=== PATIENT | male | born 1940 | race Hispanic/Latino ===

== ENCOUNTER 2017-10-27 18:01 | Observation (INO) | payer MEDICARE ==
[2017-10-27 18:51] LABS: Basophils # (Auto) 0.1 K/mm3 (0.0-0.1); Eosinophils # (Auto) 0.1 K/mm3 (0.0-0.4); Eosinophils % (Auto) 0.9 % (0.0-4.3); Hematocrit 43.4 % (35.5-45.6); Hemoglobin 14.5 gm/dl (11.8-15.2); Lymphocytes # (Auto) 1.5 K/mm3 (1.2-5.4); Lymphocytes % (Auto) 23.7 % (13.4-35.0); Mean Corpuscular HGB Conc 34 % (32-34); Mean Corpuscular Hemoglobin 31 pg (28-32); Mean Corpuscular Volume 92 fl (84-94); Monocytes # (Auto) 0.5 K/mm3 (0.0-0.8); Monocytes % (Auto) 8.2 % (0.0-7.3); Platelet Count 167 K/mm3 (140-440); Red Blood Count 4.72 M/mm3 (3.65-5.03); Red Cell Distribution Width 13.8 % (13.2-15.2)
[2017-10-27 19:10] LABS: Creatine Kinase MB 5.6 ng/mL (0.0-4.0)
[2017-10-27 19:12] LABS: BUN/Creatinine Ratio 17; Blood Urea Nitrogen 15 mg/dL (9-20); Calcium 9.5 mg/dL (8.4-10.2); Hemolysis Index 12
--- NOTE | 2017-10-27 20:41 | Emergency Department Report ---
ED Dizziness HPI - General Chief Complaint: Dizziness Stated Complaint: DIZZINESS Time Seen by Provider: 10/27/17 20:40 Source: patient, EMS Mode of arrival: Stretcher Limitations: No Limitations - History of Present Illness MD Complaint: dizziness, lightheadedness, difficulty walking -: Gradual, days(s) (Nine) Timing: gradual onset Description: lightheadedness, off-balance, difficulty walking History of Same: No History of Trauma: No Severity: Unable to Determine Improves With: nothing Worsens With: nothing Associated Symptoms: denies: denies other symptoms - Related Data Allergies Allergy/AdvReac Type Severity Reaction Status Date / Time amoxicillin Allergy Unknown Verified 10/27/17 18:13 codeine Allergy Unknown Verified 10/27/17 18:13 ED Review of Systems ROS: Stated complaint: DIZZINESS Other details as noted in HPI Comment: All other systems reviewed and negative Constitutional: denies: chills, fever Eyes: denies: eye pain ENT: denies: ear pain, throat pain Respiratory: denies: cough, orthopnea, shortness of breath Cardiovascular: denies: chest pain, palpitations, dyspnea on exertion, syncope Endocrine: no symptoms reported Gastrointestinal: denies: abdominal pain, nausea, vomiting, diarrhea Genitourinary: denies: urgency, dysuria, frequency Musculoskeletal: denies: back pain, joint swelling Skin: denies: rash, lesions, change in color Neurological: abnormal gait. denies: headache, weakness, numbness, paresthesias , confusion Psychiatric: denies: anxiety, depression Hematological/Lymphatic: denies: easy bleeding, easy bruising ED Past Medical Hx - Past Medical History Previous Medical History?: Yes Hx Hypertension: Yes Hx Asthma: Yes Additional medical history: right inguinal hernia. umbilical hernia - Surgical History Past Surgical History?: Yes Additional Surgical History: "eye sx" - Social History Smoking Status: Former Smoker Substance Use Type: None ED Physical Exam - General Limitations: No Limitations General appearance: alert, in no apparent distress - Head Head exam: Present: atraumatic, normocephalic, normal inspection - Eye Eye exam: Present: normal appearance, PERRL, EOMI Pupils: Present: normal accommodation - ENT ENT exam: Present: normal exam, normal orophraynx, mucous membranes moist - Neck Neck exam: Present: normal inspection, full ROM. Absent: tenderness - Respiratory Respiratory exam: Present: normal lung sounds bilaterally. Absent: respiratory distress, wheezes, rales, rhonchi, stridor - Cardiovascular Cardiovascular Exam: Present: regular rate, normal rhythm, normal heart sounds - GI/Abdominal GI/Abdominal exam: Present: soft, normal bowel sounds. Absent: distended, tenderness, guarding, rebound, rigid - Extremities Exam Extremities exam: Present: normal inspection, full ROM, normal capillary refill - Back Exam Back exam: Present: normal inspection, full ROM. Absent: tenderness - Neurological Exam Neurological exam: Present: alert, oriented X3, CN II-XII intact - Psychiatric Psychiatric exam: Present: normal affect, normal mood - Skin Skin exam: Present: warm, dry, intact, normal color. Absent: rash ED Course Vital Signs 10/27/17 10/27/17 18:13 18:52 Temperature 98.8 F Pulse Rate 94 H Respiratory 28 H 28 H Rate Blood Pressure 132/78 O2 Sat by Pulse 96 96 Oximetry - Reevaluation(s) Reevaluation #1: 10/27/17 23:05 Patient will be admitted bt the hospitalist outreach and education social worker Dr Weaver for further evaluation and management. ED Medical Decision Making - Lab Data Result diagrams: 10/27/17 18:40 10/27/17 18:40 - EKG Data -: EKG Interpreted by Me EKG shows normal: sinus rhythm Rate: normal (91) - EKG Data When compared to previous EKG there are: previous EKG unavailable Interpretation: nonspecific ST-T wave jet, other (First degree AV block, Incomplete RBBB, Prolonged QT, No STEMI.) - Radiology Data Radiology results: report reviewed, image reviewed - Medical Decision Making Dizziness. Unsteady Gait. Critical care attestation.: If time is entered above; I have spent that time in minutes in the direct care of this critically ill patient, excluding procedure time. ED Disposition Clinical Impression: Unsteady gait, Dizziness Disposition: OP ADMIT IP TO THIS HOSP Is pt being admited?: Yes Does the pt Need Aspirin: No Condition: Stable Time of Disposition: 23:05
[2017-10-27 21:06] LABS: INR 0.94 (0.87-1.13)
[2017-10-27 21:14] LABS: Bilirubin,Urine NEG (Negative); Blood,Urine NEG (Negative); Color,Urine Colorless (Yellow); Protein,Urine <15 mg/dL mg/dL (Negative); Urobilinogen,Urine < 2.0 mg/dL (<2.0); WBC,Urine < 1.0 /HPF (0.0-6.0)
[2017-10-27] MEDS ORDERED: K-DUR PO ONE ×2 (21:18→23:34)
[2017-10-27] MEDS ORDERED: NACL 0.9% 1000 ML 1,000 ML IV ONE ×2 (22:10→22:26)
[2017-10-27] MEDS ORDERED: NACL 0.9% 1000 ML 1,000 ML ONE (22:15)
--- NOTE | 2017-10-27 22:49 | Cat Scan Report ---
FINAL REPORT PROCEDURE: CT HEAD/BRAIN WO CON TECHNIQUE: Computerized tomography of the head was performed without contrast material. HISTORY: Dizziness COMPARISON: No prior studies are available for comparison. FINDINGS: Skull and scalp: Normal. Paranasal sinuses: Normal. Ventricles and subarachnoid spaces: Are prominent consistent with cerebral atrophy appropriate for patient's age.. Cerebrum: Old lacunar infarcts are noted involving bilateral basal ganglia. There is moderate degree bilateral periventricular nonspecific white matter hypodensity most likely representing chronic microangiopathy. An acute intra-axial or extra-axial hemorrhage or mass effect is not identified.. Cerebellum and brainstem: No evidence of hemorrhage, acute infarction or mass. Vasculature: Atherosclerotic calcification is noted involving carotid and vertebral arteries.. Comments: None. IMPRESSION: No acute intracranial abnormality Old lacunar infarcts bilateral basal ganglia
[2017-10-27] MEDS ORDERED: TYLENOL PO PRN (23:36)
[2017-10-27] MEDS ORDERED: ZOFRAN IV PRN (23:37)
[2017-10-27] MEDS ORDERED: NACL 0.9% 1000 ML 1,000 ML IV SCH (23:45)
[2017-10-28] MEDS ORDERED: NACL 0.9% 500 ML 500 ML ONE (01:20)
[2017-10-28] MEDS: KCL 10MEQ/100ML 10 MEQ/100 ML BAG IV SCH ×2 (01:25→02:25)
[2017-10-28 01:35] LABS: Creatine Kinase MB 5.5 ng/mL (0.0-4.0)
--- NOTE | 2017-10-28 04:30 | History and Physical Report ---
CHIEF COMPLAINT: Dizziness. Other complaint include unsteady gait. HISTORY OF PRESENT ILLNESS: The patient is a 77-year-old male, who said he was feeling dizzy and also have problem with gait and was unable to walk without wobbling or feeling like he was going to fall. There is no history of headache. No history of chest pain, shortness of breath, nausea or vomiting. Also, the patient denied history of shortness of breath and presented for evaluation. PAST MEDICAL HISTORY: Pertinent for hypertension, asthma, right inguinal hernia and umbilical hernia. PAST SURGICAL HISTORY: Pertinent for eye surgery. FAMILY HISTORY: Noncontributory. SOCIAL HISTORY: The patient is a former cigarette smoker, does not smoke anymore. MEDICATIONS: The patient's home medications include amlodipine 5 mg by mouth daily, atorvastatin 10 mg by mouth at bedtime, hydrochlorothiazide 25 mg by mouth daily, isosorbide dinitrate 5 mg by mouth twice daily. ALLERGIES: THE PATIENT IS ALLERGIC TO AMOXICILLIN AND CODEINE. REVIEW OF SYSTEMS: CONSTITUTIONAL: There is no fever, no chills, no diaphoresis. HEENT: There is no headache or sore throat. CARDIOVASCULAR SYSTEM: There is no chest pain or orthopnea. RESPIRATORY SYSTEM: There is no shortness of breath or cough. GASTROINTESTINAL SYSTEM: There is no nausea, no vomiting, no abdominal pain, diarrhea or constipation. NEUROLOGICAL SYSTEM: Dizziness noted, unsteady gait noted. No altered mental status. MUSCULOSKELETAL SYSTEM: There is no joint pain or swelling. DERMATOLOGICAL SYSTEM: There is no skin rash or itching. GENITOURINARY SYSTEM: There is no dysuria, hematuria or flank pain. Rest of system review is normal. PHYSICAL EXAMINATION: GENERAL: At the time of exam, the patient was found to be alert, oriented x 3 and not in acute distress. VITAL SIGNS: Shows temperature of 98.8 degrees Fahrenheit, pulse of 94, respirations 28, blood pressure 132/78, O2 sat of 96% on room air. HEENT: Pupils to be equal, round, reactive to light and accommodating. Extraocular muscles are intact. NECK: Supple with no JVD or carotid bruit. CARDIOVASCULAR: Show normal first and second heart sounds with no gallops or murmur. RESPIRATORY SYSTEM: Show good air entry on both sides of the lungs with no abnormal breath sounds. GASTROINTESTINAL: Show abdomen to be full, soft, nontender with no organomegaly or rigidity. NEUROLOGIC: Shows no focal deficit. MUSCULOSKELETAL: Show no joint swelling or tenderness. DERMATOLOGICAL: Show no skin rash. GENITOURINARY: Showing no costovertebral angle tenderness. PERTINENT LABORATORY AND IMAGING STUDIES: The patient had CT of the head without contrast done and this shows no acute intracranial abnormality; however, there is report of old lacunar infarct in the bilateral basal ganglia area. Lab results: The patient has CBC done that was unremarkable except for elevated monocyte count in the CBC differential. The patient's coagulation studies show elevated D-dimer with a value of 254. The patient's chemistry shows normal sodium with low potassium level of 3.3, low chloride of 97.1 and high CO2 of 35. The patient's cardiac enzymes show elevated total CPK of 280 with elevated CPK-MB of 5.6 and normal CPK-MB percentage index and normal troponin level. Urinalysis, the patient has urinalysis done that shows elevated urine pH of 8.0; otherwise, unremarkable. DIAGNOSES: 1. Dizziness. 2. Unsteady gait. 3. Hypokalemia. PLAN: 1. The patient will be admitted to medical/surgical floor. 2. The patient will have Neurology consult with Dr. Paul Witt this morning on 10/28/2017. 3. The patient will have physical therapy consult this morning. 4. The patient will be on Tylenol 650 mg by mouth every 4 hours as needed for fever and headache and will be on IV Zofran 4 mg every 8 hours for nausea and vomiting. 5. The patient will have potassium chloride 10 mEq by mouth x 1 dose and will also have IV potassium chloride 20 mEq and normal saline x 1 dose. 6. The patient will have bilateral carotid Doppler done this morning and will be on his home medication as shown in the medication reconciliation section. JOB# [id number] OCN/NTS
[2017-10-28 06:35] VITALS: BP 130/70
[2017-10-28] MEDS ORDERED: NORVASC PO SCH (10:00)
[2017-10-28] MEDS ORDERED: ISORDIL TITRADOSE PO SCH (10:00)
[2017-10-28] MEDS ORDERED: HCTZ PO SCH (10:00)
--- NOTE | 2017-10-28 16:04 | Event Note ---
Date: 10/28/17 Patient left AMA before I examined him.
--- NOTE | 2017-10-29 10:41 | History and Physical Report ---
ADDENDUM The patient left against medical advice before he could get up to the floor. JOB# [id number] OCN/NTS
== END 2017-10-28 09:30 | disposition left against medical advice (07) ==
LOC: EDBD → ED 18:01 → 3A 23:14 → INTOOBSV 23:14
PROVIDERS: ADMIT Internal Medicine; ATTEND Internal Medicine
DX: R42 Dizziness and giddiness (principal); E87.6 Hypokalemia; R26.81 Unsteadiness on feet; I10 Essential (primary) hypertension; J45.909 Unspecified asthma, uncomplicated; Z88.1 Allergy status to other antibiotic agents; Z88.5 Allergy status to narcotic agent; Z87.891 Personal history of nicotine dependence
CPT/HCPCS: 36415; 70450; 80048; 81001; 82550; 82553; 83735; 83880; 84484; 85025; 85379; 85610; 85730; 93005; 93010; 96361; 96365; 96366; 99285; G0378; J3480; J7030; J7040

== ENCOUNTER 2017-10-30 07:50 | Observation (INO) | payer MEDICARE ==
[2017-10-30] MEDS ORDERED: NACL 0.9% 500 ML 500 ML IV SCH (09:00)
[2017-10-30] MEDS ORDERED: ECOTRIN PO ONE (09:00)
[2017-10-30 09:12] LABS: BUN/Creatinine Ratio 17; Blood Urea Nitrogen 15 mg/dL (9-20); Calcium 9.7 mg/dL (8.4-10.2); Hemolysis Index 10
[2017-10-30] MEDS ORDERED: HEPARIN/NS 5000 UNIT/500ML(CATH LAB) 1,000 ML IR ONE (12:02)
[2017-10-30] MEDS ORDERED: HEPARIN 10,000 UNITS/10 ML ONE (12:02)
[2017-10-30] MEDS ORDERED: VERSED ONE (12:03)
[2017-10-30] MEDS ORDERED: XYLOCAINE 2% INFILTRATI ONE (12:03)
[2017-10-30] MEDS ORDERED: NITROGLYCERIN SYRINGE 3 ML ONE (12:03)
[2017-10-30] MEDS ORDERED: CALAN ONE (12:03)
[2017-10-30] MEDS ORDERED: SUBLIMAZE ONE (12:03)
--- NOTE | 2017-10-30 12:52 | Short Stay Summary ---
Short Stay Documentation Date of service: 10/30/17 - History H&P: obtained from office - Allergies and Medications Current Medications: Allergies amoxicillin Allergy (Verified 10/27/17 18:13) Unknown codeine Allergy (Verified 10/30/17 07:51) Unknown SHORT OF BREATH Home Medications Medication Instructions Recorded Confirmed Last Taken Type Amlodipine Besylate [Norvasc] 5 mg PO DAILY 10/28/17 10/30/17 10/30/17 06:30 History AtorvaSTATin [Lipitor] 10 mg PO QHS 10/28/17 10/30/17 10/29/17 History 10mg Isosorbide Dinitrate 5 mg PO BID 10/28/17 10/30/17 10/29/17 History 5mg hydroCHLOROthiazide [HCTZ] 25 mg PO QDAY 10/28/17 10/30/17 10/29/17 History 25mg Albuterol Sulfate [Ventolin Hfa] 2 puff INHALATION Q4H PRN 10/30/17 10/30/1707/12 06:30 History 2 puffs Active Medications Sodium Chloride (Nacl 0.9% 500 Ml) 500 mls @ 50 mls/hr IV DIRECT STACEY Stop: 10/30/17 18:59 Last Admin: 10/30/17 09:58 Dose: 50 mls/hr - Physical exam General appearance: no acute distress HEENT: Atraumatic Lungs: Clear to auscultation Breasts: deferred Heart: Regular rate Gastrointestinal: normal Male Genitourinary: deferred Female Genitourinary: deferred Rectal Exam: deferred Extremities: no ischemia Neurological: Normal gait - Brief post op/procedure progress note Date of procedure: 10/30/17 Pre-op diagnosis: Stable angina Post-op diagnosis: same Procedure: LHC, LV gram Anesthesia: MAC Findings: See report Surgeon: MUNA TREVIÑO Estimated blood loss: none Pathology: none Condition: stable - Hospital course Hospital course: Uneventful - Disposition Condition at discharge: Good Disposition: [id number] Stay Discharge Plan Activity: advance as tolerated Weight Bearing Status: Non-Weight Bearing Diet: low cholesterol, low salt Follow up with: SIMEON ARORA MD [Primary Care Provider] - 7 Days
[2017-10-30] MEDS ORDERED: SODIUM CHLORIDE FLUSH SYRINGE 10 ML IV PRN (13:03)
[2017-10-30] MEDS ORDERED: TYLENOL PO PRN (13:03)
[2017-10-30] MEDS ORDERED: ZOFRAN IV PRN (13:03)
--- NOTE | 2017-10-30 13:14 | Cardiac Catherization Report ---
INDICATION FOR PROCEDURE: Stable angina, Dutch class 3. ORDERING PHYSICIAN: Glenny Gonzáles MD PROCEDURE PERFORMED: 1. Selective left and right coronary angiography. 2. Left ventriculography. DESCRIPTION OF PROCEDURE: After obtaining the consent, the patient was draped using sterile technique. A 2% lidocaine was injected into the right wrist. A 5-[place] vascular sheath was inserted into the right radial artery. A 5-[place] JL3.5 catheter was used to selectively engage left coronary artery. A 5-[place] 3DRC catheter was used to selectively engage the left coronary artery. A 5-[place] JR4 catheter was used to hand inject the left ventriculogram. No complications occurred during the procedure. Hemostasis was achieved at the end of the procedure using manual pressure. SPECIMEN REMOVED: None. ESTIMATED BLOOD LOSS: Minimal. Physician and the patient [id number] sedation start time is 12:19 p.m. Physician and the patient [id number] sedation stop time is 12:35 p.m. Total sedation time is 16 minutes. Sedation administered was only 1 mg of IV Versed and 25 mcg of IV fentanyl. FINDINGS: HEMODYNAMICS: Aortic pressure 127/63, LV systolic pressure 130 mmHg, LVEDP 30 mmHg. CARDIAC STRUCTURES: The left ventricle is normal in size and systolic function. The left ventricular ejection fraction is estimated at 60% with normal wall motion. There is evidence of significant mitral annular calcifications. CORONARY ANATOMY: 1. This is a right dominant circulation. 2. The left main is heavily diseased. There is evidence of a 70% tubular left main stenosis. 3. The left anterior descending artery exhibits an 80% ostial LAD stenosis followed by 70% tubular stenosis involving the proximal and mid segment. The distal LAD tapers down. There is evidence of competitive flow noted from the right coronary artery. 4. The left circumflex artery also exhibits evidence of an 80% tubular stenosis extending from the proximal to the mid segment. 5. The right coronary artery is dominant. The right coronary artery is heavily calcified. There is scattered 40-50% lesions noted throughout the proximal to the mid and distal right coronary artery. There are sequential two 90% lesions noted in a large caliber PLVB. IMPRESSION: 1. 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 2. Significant ostial and proximal LAD disease. 3. Significant proximal circumflex disease. 4. Significant disease noted in the PLVB. 5. Heavily calcified coronary arteries. 6. Normal left ventricular size and systolic function. 7. Evidence of significant mitral annular calcifications. 8. LVEDP measured at 30 mmHg. RECOMMENDATIONS: The patient will be recommended for coronary artery bypass grafting evaluation. JOB# [id number] AYANA/AYLA
[2017-10-30 16:33] VITALS: BP 113/67
[2017-10-30] MEDS ORDERED: ISORDIL TITRADOSE PO SCH (22:00)
[2017-10-30] MEDS ORDERED: SODIUM CHLORIDE FLUSH SYRINGE 10 ML IV SCH (22:00)
[2017-10-31] MEDS ORDERED: NORVASC PO SCH (10:00)
[2017-10-31] MEDS ORDERED: ASPIRIN PO SCH (10:00)
[2017-10-31] MEDS ORDERED: LOVENOX SUB-Q SCH ×2 (10:00)
== END 2017-10-30 17:30 | disposition other institution (70) ==
LOC: CATH 07:50 → CATHLABREC 07:50 → EDBD 07:50 → 4A 13:03
PROVIDERS: ADMIT Internal Medicine; ATTEND Internal Medicine
DX: I20.8 Other forms of angina pectoris (principal); R94.39 Abnormal result of other cardiovascular function study; I10 Essential (primary) hypertension; I73.9 Peripheral vascular disease, unspecified; J45.909 Unspecified asthma, uncomplicated; F41.9 Anxiety disorder, unspecified
CPT/HCPCS: 36415; 80048; 93005; 93010; 93458; C1894; G0378; J1644; J2250; J3010; J7040; Q9967